=== PATIENT | female | born 2000 | race Caucasian/White ===

== ENCOUNTER 2021-10-01 13:58 | Outpatient (CLI) | payer MEDICAID, SELFPAY ==
--- NOTE | 2021-10-01 14:05 | RAD_ITS ---
INDICATION: KUB- KIDNEY CALC.- STONES EXAMINATION/TECHNIQUE: X-RAY - XR Abdomen 1 View COMPARISON: None FINDINGS: BOWEL GAS PATTERN: Non-obstructive. No bowel or stomach distention. FREE AIR: Not assessed on a single supine view. ORGANOMEGALY: Not seen. CALCIFICATIONS: 0.7 cm right midpole and 0.3 cm left upper pole rounded radiopacities are suspicious for renal calcifications. LOWER CHEST: No acute pathology. BONES AND SOFT TISSUES: No acute pathology. RAD/Abdomen Single View IMPRESSION: Likely bilateral nephrolithiasis. Electronically Signed: Ramiro Davidson, at 14:37 EDT ,
== END 2021-10-01 23:59 | disposition home or self-care (01) ==
LOC: MTRAD 14:04
PROVIDERS: PCP Family Medicine; Referring Provider Urology; Visit Provider Urology
DX: N20.0 Calculus of kidney (principal)
CPT/HCPCS: 74018

== ENCOUNTER 2021-10-14 11:56 | Day surgery (SDC) | payer MEDICAID, SELFPAY ==
[2021-10-14] VITALS (8 sets, daily range): BP systolic 133–167; BP diastolic 75–97; PULSE 71–81; RESP 16; TEMP 36.1–36.7; O2SAT 99–100; BMI 33.9
[2021-10-14] MEDS: Lactated Ringers 1,000 ML 15 ML IV (12:20)
[2021-10-14 12:25] LABS: Internal QC Validated? YES +Cl - CLEAR BKGD; Pregnancy, Urine Negative Negative
--- NOTE | 2021-10-14 13:06 | PCM.OPRPT ---
Problems Associated Problem List Diagnoses (1) Right renal stone: Report of Operation Date of Procedure: 10/14/21 Pre-Operative Diagnosis: Right renal calculus Post-Operative Diagnosis: Same Surgery/Procedure Performed:: Cystoscopy with right ureteral stent insertion, right extracorporal shockwave lithotripsy Surgeon: iTff Comer Type of Anesthesia: General Specimen's removed: None Description of Procedure: The patient is a 21-year-old female with a history of stones who presented to the office after being diagnosed with a large right renal calculus. After discussing the risk benefits and alternatives, she agreed to proceed with surgical intervention. Informed consent was obtained. The patient was taken to the operating room and placed on the operating room table. Anesthesia monitored the head, neck, airway, IV access and vital signs throughout the case. Once anesthesia was probably administered the patient was placed into dorsal lithotomy position was prepped and draped in usual sterile fashion. The cystoscope was inserted through the urethra under direct visualization into the urinary bladder. The bladder mucosa was found to be within normal limits. The right ureteral orifice was identified and intubated with 0.035 Glidewire. A 6 Kinyarwanda by 24 cm JJ stent was inserted over the wire without difficulty. There is good positioning in the renal pelvis as well as the urinary bladder. At this time the patient's bladder was emptied and the cystoscope was removed. She was repositioned on the lithotripter table. The stone was easily identified and was shocked with 3000 shocks. The patient tolerated the procedure without complication. She was then awakened and taken to the recovery room in good condition. There were no complications during this procedure. Grafts/Implants Used: 6 x 24 JJ stent Complications None Admit VTE Documentation VTE Present on Admission: Yes VTE Mechan Device Prophylaxis: SCD's VTE Pharm Prophylaxis ordered?: No Reason prophylaxis not ordered:: Treatment Not Indicated
--- NOTE | 2021-10-14 13:09 | PCM.DC ---
Discharge Instructions Diet Discharge Diet: No restrictions Activity Discharge Activity: Return to Normal Activity, May Drive (When not taking narcotics) and May Shower Dressing / Incision Call your doctor if you observe: Fever of 101 or Higher, Inability to urinate and Inability to have a bowel movement Follow Up Care Please Follow Up With: Tiff Comer MD When: In 2 to 3 weeks, call the office for appointment Test Results: Test results from this visit will be discussed in further detail at your follow-up appointment, if applicable. Discharge Plan Admission Attending Provider: Tiff Comer Primary Care Provider: Ana Lewis Discharge Orders/Prescriptions Prescriptions: New oxycodone-acetaminophen [oxycodone-acetaminophen] 1 TABLET tablet 2 tab PO Q8H PRN PRN (Reason: Pain) 7 Days Qty: 15 RF: 0 cephalexin [cephalexin] 500 MG capsule 500 mg PO Q12 3 Days Qty: 6 RF: 0 phenazopyridine [Pyridium] 200 MG tablet 200 mg PO TID PRN PRN (Reason: Bladder Spasms) 7 Days Qty: 30 RF: 0 Continued quetiapine 25 mg tablet 25 mg PO DAILY RF: 0 venlafaxine 37.5 mg capsule,extended release 24hr 37.5 mg PO 1700 RF: 0 divalproex 250 mg tablet,delayed release (DR/EC) 250 mg PO BID RF: 0 venlafaxine 150 mg capsule,extended release 24hr 150 mg PO DAILY RF: 0 hydroxyzine pamoate 25 mg capsule 25 - 50 mg PO QHS RF: 0 Trulance 3 mg tablet 3 mg PO DAILY RF: 0 Referrals / Follow Up: Ana Lewis MD [Primary Care Provider] - Disposition Disposition (needs filled in before D/C Order can be placed): Home, Self Care
[2021-10-14] MEDS: Cefazolin 2 GM in 0.9% Normal Saline 100 ML IV (13:42)
== END 2021-10-14 23:59 | disposition home or self-care (01) ==
LOC: SDC 11:56 → AC 11:57
PROVIDERS: Anesthesiology; PCP Family Medicine; Referring Provider Urology; Visit Provider Urology
PROC: (CPT 50590; principal; 2021-10-14 13:15)
DX: N20.0 Calculus of kidney (principal); F31.9 Bipolar disorder, unspecified; F41.9 Anxiety disorder, unspecified; Z87.442 Personal history of urinary calculi; Z79.899 Other long term (current) drug therapy
CPT/HCPCS: 52332; 00910; 50590; 81025; 87426; C9803; J7120; C2617; J2405

== ENCOUNTER 2021-11-03 09:13 | Outpatient (CLI) | payer MEDICAID, SELFPAY ==
--- NOTE | 2021-11-03 09:17 | RAD_ITS ---
INDICATION: KIDNEY CALC EXAMINATION/TECHNIQUE: X-RAY - XR Abdomen 1 View COMPARISON: 10/01/2021. FINDINGS: Right double-J ureteral stent visualized in position. BOWEL GAS PATTERN: Non-obstructive. No bowel or stomach distention. Abundance of stool is visualized in the large bowel. FREE AIR: Not assessed on a single supine view. ORGANOMEGALY: Not seen. CALCIFICATIONS: No abnormal calcifications observed. LOWER CHEST: No acute pathology. BONES AND SOFT TISSUES: No acute pathology. RAD/Abdomen Single View IMPRESSION: Right double-J ureteral stent visualized in position. Limited evaluation of the renal best due to superimposed stool filled bowel loops, no calcifications seen. Electronically Signed: Yifan Linares MD at 10:46 EDT ,
== END 2021-11-03 23:59 | disposition home or self-care (01) ==
LOC: MTRAD 09:14
PROVIDERS: PCP Family Medicine; Referring Provider Urology; Visit Provider Urology
DX: N20.0 Calculus of kidney (principal)
CPT/HCPCS: 74018

== ENCOUNTER → 2021-12-04 | Outpatient (CLI) | payer MEDICAID, SELFPAY ==
--- NOTE | 2021-12-04 14:51 | CT_ITS ---
EXAM: CT ABDOMEN AND PELVIS WITHOUT AND WITH INTRAVENOUS CONTRAST CLINICAL INDICATION: KIDNEY STONES TECHNIQUE: Helically acquired images were obtained of the abdomen and pelvis without and with intravenous contrast. This CT exam was performed using one or more of the following dose reduction techniques: automated exposure control, adjustment of the mA and/or kV according to patient size, and/or use of iterative reconstruction technique. This report was created using [employer] report generation technology. CONTRAST: IV 100mL Isovue-300 COMPARISON: None. FINDINGS: LOWER THORAX: Unremarkable. Lung bases are clear. No cardiomegaly. No pericardial effusion. ABDOMEN: LIVER: Unremarkable. Homogeneous. No focal mass. GALLBLADDER AND BILE DUCTS: Unremarkable. No calcified gallstones. No gallbladder distention or wall edema. No intra- or extrahepatic biliary ductal dilation. PANCREAS: Unremarkable. No focal cystic or solid mass. SPLEEN: Unremarkable. Normal size without focal cystic or solid mass. ADRENALS: Unremarkable. No nodules. KIDNEYS AND URETERS: Punctate stone noted within the left kidney. 14 mm cyst within the lower pole left kidney. 8 mm thick perinephric fluid collection noted along the lateral contour of the right kidney which may represent chronic hematoma or possibly abscess. No obstructive changes of the renal collecting system. STOMACH AND BOWEL: Unremarkable. No bowel distention. No focal inflammatory change. PELVIS: APPENDIX: Appendix is visualized and normal in appearance. BLADDER: Unremarkable. REPRODUCTIVE: Unremarkable as visualized. No mass. ABDOMEN and PELVIS: INTRAPERITONEAL SPACE: Unremarkable. No ascites or other fluid collection. No free air. BONES/JOINTS: Unremarkable. No suspicious lytic or blastic abnormality. SOFT TISSUES: Unremarkable. No discrete abdominal or pelvic wall hernia. VASCULATURE: Unremarkable. Abdominal aorta is non-dilated. LYMPH NODES: Unremarkable. No enlarged lymph nodes. CT/CT Abd/Pelvis W/WO Contrast IMPRESSION: 1. Right perinephric fluid collection which may represent localized hematoma or abscess. No discrete evidence of underlying acute pyelonephritis or urinary tract obstruction. 2. Punctate left renal stone. Electronically Signed: Arun Strange MD at 15:53 EDT ,
== END | disposition home or self-care (01) ==
LOC: CT 14:48
PROVIDERS: PCP Family Medicine; Referring Provider Urology; Visit Provider Urology
DX: N20.0 Calculus of kidney (principal)
CPT/HCPCS: 74178; Q9967

== ENCOUNTER → 2021-12-09 | Outpatient (CLI) | payer MEDICAID, SELFPAY ==
[2021-12-09 15:35] LABS: Hematocrit 33.5 % (37-47); Hemoglobin 10.1 g/dL (12.0-15.0); Mean Corp Hgb Conc 30.1 g/dL (32-36); Mean Corpuscular Hgb 22.7 pg (27.0-32.0); Mean Corpuscular Volume 75.5 fL (81-99); Platelet Count 312 K/mm3 (150-450); RBC Distribution Width CV 14.1 % (11.6-14.6); RBC Distribution Width SD 38.1 fl (35.1-43.9); Red Blood Count 4.44 M/mm3 (4.2-5.4); White Blood Count 6.3 K/mm3 (4.4-11.0)
[2021-12-09 15:48] LABS: Anion Gap 5 (5-15); BUN 20 mg/dL (7-18); BUN/Creat Ratio 31.8 RATIO (10-20); Calcium,Total 8.9 mg/dL (8.5-10.1); Chloride 112 mmol/L (98-107); Creatinine, Serum 0.63 mg/dL (0.55-1.02); EST Glomerular Filtration Rate 126 mL/min (>60); Est Glom Filt Rate - Afr Amer 153 mL/min (>60); Glucose 92 mg/dL (74-106); Potassium 4.2 mmol/L (3.5-5.1); Sodium Level 139 mmol/L (136-145)
== END | disposition home or self-care (01) ==
LOC: MTLAB 11:08
PROVIDERS: PCP Family Medicine; Referring Provider Urology; Visit Provider Urology
DX: N15.9 Renal tubulo-interstitial disease, unspecified (principal)
CPT/HCPCS: 36415; 80048; 85027

== ENCOUNTER 2022-11-29 22:01 | Observation (INO) | payer MEDICAID, SELFPAY ==
[2022-11-29 22:01] VITALS: BP 163/101; PULSE 79; RESP 18; TEMP 35.9; O2SAT 98; BMI 22.4
--- NOTE | 2022-11-29 22:06 | EX.ED.VIS.PS ---
HPI HPI - Psych History of Present Illness Chief Complaint: Suicidal Informant: patient and EMS Narrative Narrative: Patient admits to overdosing on her psychiatric medications and attempt to kill herself tonight. Initially she kept saying she did this a while ago and had no idea when she took the pills, but it sounds like an estimate is about 1 hour prior to evaluation. She had 2 full bottles of medications, 1 each of 30 pills, venlafaxine 150 mg, and Viibryd 20 mg, and she states she opened them and took all of both of those. She did not take anything else. She states she took them all at once. Subsequently she vomited and saw multiple pill fragments. She is asymptomatic at this time. After she vomited up the pill she called 911 herself. She states she has really been struggling because her mom a month ago and I just want to be and with my mom. PFSH PFSH Medical History Anxiety Bipolar disorder Depression High cholesterol History of IBS Right renal stone Smoker Home Medications divalproex 250 mg tablet,delayed release 250 mg PO BID BIPOLAR 10/07/21 [History Last Taken Unknown] hydroxyzine pamoate 25 mg capsule 25 - 50 mg PO QHS 10/07/21 [History Last Taken Unknown] plecanatide 3 mg tablet (Trulance) 3 mg PO DAILY IBS 10/07/21 [History Last Taken Unknown] quetiapine 25 mg tablet 25 mg PO DAILY 10/07/21 [History Last Taken Unknown] venlafaxine 150 mg capsule,extended release 24 hr 150 mg PO DAILY 10/07/21 [History Last Taken Unknown] venlafaxine 37.5 mg capsule,extended release 24 hr 37.5 mg PO 1700 10/07/21 [History Last Taken Unknown] cephalexin 500 mg capsule 500 mg PO Q12 post-operative 3 days #6 CAPSULES 10/14/21 [Rx Last Taken Unknown] oxycodone-acetaminophen 5 mg-325 mg tablet 2 tab PO Q8H PRN PRN Pain 7 days #15 tabs 10/14/21 [Rx Last Taken Unknown] phenazopyridine 200 mg tablet (Pyridium) 200 mg PO TID PRN PRN Bladder Spasms 7 days #30 tabs 10/14/21 [Rx Last Taken Unknown] Allergy/AdvReac Type Severity Reaction Status Date / Time latex Allergy Other Verified 10/07/21 15:20 Family History Other Heart disease Hypertension Surgical History Hx of colonoscopy Social History Smoking Status: Light Smoker (<10/day) ROS ROS ED Constitutional Constitutional ED: Denies chills or fever(s) Eyes Eyes: Denies change in vision or diplopia ENT ENT ED: Denies rhinorrhea or sore throat Cardiovascular Cardiovascular: Denies chest pain or palpitations Respiratory/Chest Respiratory/Chest: Denies cough or dyspnea Gastrointestinal Gastrointestinal: Denies abdominal pain, diarrhea, nausea or vomiting Genitourinary Genitourinary ED: Denies dysuria or hematuria Musculoskeletal Musculoskeletal: Denies back pain or neck pain Integumentary Denies abscess or rash Neurologic Neurologic: Denies headache(s), paresthesias or weakness Psychiatric Psychiatric: Reports depression, suicidal ideation and suicidal thoughts; Denies homicidal ideation EXAM Physical Exam Const Vital Signs: 11/29/22 22:01 11/29/22 23:01 11/30/22 00:01 Temperature 96.7 F L Temperature Source Temporal Pulse Rate 79 Respiratory Rate 18 20 H 21 H Blood Pressure 163/101 H Blood Pressure Mean 121 Pulse Ox 98 96 95 Oxygen Delivery Method Room Air Room Air Room Air 11/30/22 01:00 Temperature 98 F Temperature Source Temporal Pulse Rate 78 Respiratory Rate 18 Blood Pressure 134/95 H Blood Pressure Mean 108 Pulse Ox 97 Oxygen Delivery Method Room Air Positive well nourished and well developed General Appearance ED: well developed and NAD HEENT Reports moist mucous membranes normocephalic and atraumatic Eyes PERRL and EOMs intact bilaterally General Eye ED: Negative for scleral icterus Neck no lymphadenopathy and supple Resp normal respiratory effort and clear to auscultation bilaterally Cardio no murmurs Rate: regular rate Rhythm: regular rhythm GI non-tender and non-distended Auscultation: normoactive bowel sounds Palpation: soft Back/Spine no CVA tenderness and normal ROM Extremity normal to inspection General Extremety ED: Negative for edema General Extremity: Negative for edema Neuro oriented x3, CN's II-XII intact bilaterally, no sensory deficits noted and gait normal Sensorium / Orientation: alert Motor Exam: strength 5/5 throughout Psych mental status grossly normal, thought process normal, cooperative, activity/motor behavior normal and denies homicidal ideation Mood & Affect: depressed Thought Content: suicidality Skin Lesions: no lesions Rashes: no rashes MDM MDM MDM Narrative Medical decision making narrative: Initially patient asymptomatic and keenly alert GCS 15. However by the time the nurses brought charcoal to her, she was too lethargic to drink so they place an NG which she tolerated, and we gave her the charcoal via NG tube. She remained extremely lethargic, difficult to awaken even 2 hours after her arrival, on my evaluation GCS: = 8. However I do not think she needs advanced airway management since she is breathing well, has a gag, and is not hypoxic. Her repeat blood pressure is 140/92 and her vital signs are normal. 3.5 hours after ingestion, her labs are all back, coingestants testing is all negative, toxicology negative, and the rest of her work-up is unremarkable. I discussed with poison control, they said that she was unlikely to have any major issues, QT prolongation would be uncommon which she does not have right now, serotonin syndrome and seizures are possible but not necessarily likely it just depends on how much she absorbed, but that she would need to be observed for a minimum of 12 hours, but given her status they agree with admission to the ICU. Patient's COVID returned positive. She is asymptomatic. I no longer am able to ask questions regarding exposures due to her lethargy. I am sending PCR to be done stat. Will be admitted to the ICU with appropriate precautions. Lab Data Attestation: I reviewed the patient's lab results. Labs: Laboratory Results - last 24 hr 11/29/22 11/29/22 11/29/22 22:20 22:20 22:20 WBC 8.2 RBC 5.06 Hgb 11.5 L Hct 37.0 MCV 73.1 L MCH 22.7 L MCHC 31.1 L RDW Std Deviation 39.9 RDW Coeff of Damien 15.3 H Plt Count 349 MPV 10.7 Immature Gran % (Auto) 0.400 Neut % (Auto) 56.4 Lymph % (Auto) 33.0 [place] % (Auto) 6.8 Eos % (Auto) 2.8 Baso % (Auto) 0.6 Absolute Neuts (auto) 4.7 Absolute Lymphs (auto) 2.72 Nucleated RBC % 0 Sodium 140 Potassium 3.6 Chloride 109 H Carbon Dioxide 22.0 Anion Gap 9 BUN 18 Creatinine 0.70 Estim Creat Clear Calc 113.43 Est GFR (MDRD) Af Amer 134 Est GFR (MDRD) Non-Af 111 BUN/Creatinine Ratio 25.8 H Glucose 90 Calcium 8.9 Total Bilirubin 0.20 AST 19 ALT 27 Alkaline Phosphatase 110 Total Protein 8.1 Albumin 3.7 Globulin 4.4 H Albumin/Globulin Ratio 0.8 L Serum , Qual Salicylates 2.0 L Urine Opiates Screen Urine Methadone Screen Acetaminophen 11.4 Ur Barbiturates Screen Ur Phencyclidine Scrn Ur Amphetamines Screen MDMA (Ecstasy) Screen U Benzodiazepines Scrn Urine Cocaine Screen U Cannabinoids Screen Ur Drug Screen Comment Ethyl Alcohol < 3.0 11/29/22 11/29/22 22:20 22:40 WBC RBC Hgb Hct MCV MCH MCHC RDW Std Deviation RDW Coeff of Damien Plt Count MPV Immature Gran % (Auto) Neut % (Auto) Lymph % (Auto) [place] % (Auto) Eos % (Auto) Baso % (Auto) Absolute Neuts (auto) Absolute Lymphs (auto) Nucleated RBC % Sodium Potassium Chloride Carbon Dioxide Anion Gap BUN Creatinine Estim Creat Clear Calc Est GFR (MDRD) Af Amer Est GFR (MDRD) Non-Af BUN/Creatinine Ratio Glucose Calcium Total Bilirubin AST ALT Alkaline Phosphatase Total Protein Albumin Globulin Albumin/Globulin Ratio Serum , Qual NEGATIVE Salicylates Urine Opiates Screen NEGATIVE Urine Methadone Screen NEGATIVE Acetaminophen Ur Barbiturates Screen NEGATIVE Ur Phencyclidine Scrn NEGATIVE Ur Amphetamines Screen NEGATIVE MDMA (Ecstasy) Screen NEGATIVE U Benzodiazepines Scrn NEGATIVE Urine Cocaine Screen NEGATIVE U Cannabinoids Screen NEGATIVE Ur Drug Screen Comment Ethyl Alcohol Radiography Diagnostic Testing: Clinical Impression(s) from Imaging Studies KUB X-Ray 11/29/22 23:15 IMPRESSION: Enteric tube as above. Electronically Signed: Geraldo Mcclure MD at 23:27 EDT , Rhythm Strip Rhythm Strip: Sinus Rhythm Rate: 78 Ectopy: None EKG Initial EKG: Attestation: I personally reviewed and interpreted this EKG as follows: Interpretation: Sinus Rhythm and No Acute Injury Pattern Comments: Normal EKG Management Discussion w/another healthcare provider: Hospitalist and [employer] Specialist (Toxicology) Critical Care Time Critical Care Time: Yes Critical care time (excluding procedures): 30-74 minutes (33 min), Including time spent:, Discussing w/Patient &/or Family/Frame Changer, Discussing w/Consultants, Arranging Admission or Transfer and Performing Direct Patient Care at Bedside Discharge Plan Dx/Rx/DC Orders Clinical Impression: Suicidal ideation, Suicide gesture, Intentional drug overdose, Lethargy Disposition Disposition: Acute Care Hospital [facility]
[2022-11-29 22:33] LABS: Absolute Lymphocyte Count 2.72 X10^3/uL (0.83-4.51); Absolute Neutrophil Count 4.7 X10^3/uL (2.0-7.7); Basophil# 0.05 X10^3/uL; Basophil% 0.6 % (0-1); Eosinophil# 0.23 X10^3/uL; Eosinophils% 2.8 % (0-5); Hemoglobin 11.5 g/dL (12.0-15.0); Lymphocyte # 2.72 X10^3/ul (0.83-4.51); Mean Corp Hgb Conc 31.1 g/dL (32-36); Mean Corpuscular Hgb 22.7 pg (27.0-32.0); Mean Corpuscular Volume 73.1 fL (81-99); Mean Platelet Vol. 10.7 fl (6.2-12.0); Monocyte# 0.56 X10^3/uL; Monocyte% 6.8 % (0-10); NRBC Flagged by Analyzer 0 % (0-5); Neutrophil # 4.65 X10^3/uL (2.7-7.7); Neutrophil % 56.4 % (47-70); Platelet Count 349 K/mm3 (150-450); RBC Distribution Width CV 15.3 % (11.6-14.6); RBC Distribution Width SD 39.9 fl (35.1-43.9); Red Blood Count 5.06 M/mm3 (4.2-5.4); White Blood Count 8.2 K/mm3 (4.4-11.0)
[2022-11-29 22:39] LABS: Internal QC Validated? YES +Cl - CLEAR BKGD
[2022-11-29 22:43] LABS: Pregnancy, Serum, hCG Quali. NEGATIVE Negative
[2022-11-29] MEDS: Activated Charcoal 25 GM/120 ML BOT PO (22:45)
[2022-11-29 22:57] LABS: ALB/GLOB Ratio 0.8 RATIO (0.9-2.4); AST(SGOT) 19 U/L (15-37); Alanine Aminotransfer ALT/SGPT 27 U/L (13-56); Albumin, Serum 3.7 g/dL (3.2-5.0); Alkaline Phosphatase 110 U/L (45-117); Anion Gap 9 (5-15); BUN 18 mg/dL (7-18); BUN/Creat Ratio 25.8 RATIO (10-20); Calcium,Total 8.9 mg/dL (8.5-10.1); Chloride 109 mmol/L (98-107); EST Glomerular Filtration Rate 111 mL/min (>60); Est Glom Filt Rate - Afr Amer 134 mL/min (>60); Estimated Creatinine Clearance 113.43 ml/min; Globulin 4.4 g/dL (2.2-4.2); Glucose 90 mg/dL (74-106); Potassium 3.6 mmol/L (3.5-5.1); Protein, Total 8.1 g/dL (6.4-8.2); Sodium Level 140 mmol/L (136-145)
[2022-11-29 23:00] LABS: Amphetamine Urine VISTA NEGATIVE (<1000 ng/mL); Barbiturate Urine VISTA NEGATIVE (< 200 ng/mL); Benzodiazepine Urine VISTA NEGATIVE (< 200 ng/mL); Cocaine Urine VISTA NEGATIVE (< 300 ng/mL); Ecstacy Urine VISTA NEGATIVE (< 500 ng/mL); Methadone Urine VISTA NEGATIVE (< 300 ng/mL); PCP Urine VISTA NEGATIVE (< 25 ng/mL); THC Urine VISTA NEGATIVE (< 50 ng/mL); Vista UDS pH Range 5
[2022-11-29 23:01] VITALS: RESP 20; O2SAT 96
[2022-11-29 23:13] LABS: Alcohol, Blood (Medical)-Serum < 3.0 mg/dL
--- NOTE | 2022-11-29 23:15 | RAD_ITS ---
INDICATION: ng placement EXAMINATION/TECHNIQUE: X-RAY - XR Abdomen 1 View COMPARISON: None FINDINGS: Enteric tube noted with side port projecting over the stomach bubble. Lung bases are grossly clear. There are some distended loops of bowel in the upper abdomen which are nonspecific. Spinal curvature convex rightward. No obvious subdiaphragmatic free air allowing for semierect positioning. RAD/Abdomen Single View (Portable) IMPRESSION: Enteric tube as above. Electronically Signed: Geraldo Mcclure MD at 23:27 EDT ,
--- NOTE | 2022-11-29 23:30 | ED.RN ---
attempte to give act charcoal via cup and straw to pt. pt unable to remain alert long enough to consume medication. md notified. ng ordered, inserted and medication given. sitter remains present in room.
[2022-11-29 23:39] LABS: Acetaminophen (Tylenol) Level 11.4 ug/mL (10.0-30.0)
[2022-11-30] VITALS (23 sets, daily range): BP systolic 121–172; BP diastolic 81–122; PULSE 78–103; RESP 14–23; TEMP 36.4–37.3; O2SAT 95–98; BMI 35.2
--- NOTE | 2022-11-30 00:41 | EKG12_ITS ---
Test Reason : OVERDOSE Blood Pressure : / mmHG Vent. Rate : 097 BPM Atrial Rate : 097 BPM P-R Int : 150 ms QRS Dur : 092 ms QT Int : 370 ms P-R-T Axes : 035 -06 000 degrees QTc Int : 469 ms Poor data quality, interpretation may be adversely affected Normal sinus rhythm Minimal voltage criteria for LVH, may be normal variant ( R in aVL ) Borderline ECG Confirmed by IRAM PINON, KARIE ([id number]), editor dictionary RACHAEL HER ([id number]) on 12/01/2022 8:19:56 AM Referred By: Confirmed By:KARIE WALDEN MD
--- NOTE | 2022-11-30 01:00 | PCM.HP.STD ---
HPI - General General Date of Admission: 11/30/22 Date of Service: 11/30/22 Chief Complaint: Suicide attempt HPI Narrative PALMER HUGHES, is a 22 F with a significant history of depression who presents to the emergency department with suicidal attempt. History was taken from emergency department doctor and from patient's sister who was at the bedside as patient was encephalopathic and she could not provide history. Patient has been on psychotropic medications for a long time. Patient's mother in less than a month time and reportedly patient has been depressed. Patient takes took about 30 pills/whole bottle of Viibryd and same amount of venlafaxine. Per patient's sister was at the bedside these medications appears to be recently prescribed. Patient's sister does not live with patient in the same house and did not know entire history. Emergency Department doctor reported that initially patient who was talkative stated that she vomited after taking these pills. Then she called 911. Activated charcoal was about to be given to patient orally at the emergency department but then it was noted that she was severely drowsy so an NG tube was placed through which the activated charcoal was administered. Emergency department doctor discussed the case with poison control who suggested that patient be observed for about 12 hours. PFSH Medical History Anxiety Bipolar disorder Depression High cholesterol History of IBS Right renal stone Smoker Home Medications divalproex 250 mg tablet,delayed release 250 mg PO BID BIPOLAR 10/07/21 [History Last Taken Unknown] hydroxyzine pamoate 25 mg capsule 25 - 50 mg PO QHS 10/07/21 [History Last Taken Unknown] plecanatide 3 mg tablet (Trulance) 3 mg PO DAILY IBS 10/07/21 [History Last Taken Unknown] quetiapine 25 mg tablet 25 mg PO DAILY 10/07/21 [History Last Taken Unknown] venlafaxine 150 mg capsule,extended release 24 hr 150 mg PO DAILY 10/07/21 [History Last Taken Unknown] venlafaxine 37.5 mg capsule,extended release 24 hr 37.5 mg PO 1700 10/07/21 [History Last Taken Unknown] cephalexin 500 mg capsule 500 mg PO Q12 post-operative 3 days #6 CAPSULES 10/14/21 [Rx Last Taken Unknown] oxycodone-acetaminophen 5 mg-325 mg tablet 2 tab PO Q8H PRN PRN Pain 7 days #15 tabs 10/14/21 [Rx Last Taken Unknown] phenazopyridine 200 mg tablet (Pyridium) 200 mg PO TID PRN PRN Bladder Spasms 7 days #30 tabs 10/14/21 [Rx Last Taken Unknown] Allergy/AdvReac Type Severity Reaction Status Date / Time latex Allergy Other Verified 10/07/21 15:20 Family History Other Heart disease Hypertension Surgical History Hx of colonoscopy Social History Smoking Status: Light Smoker (<10/day) ROS Review of Systems ROS Unobtainable: due to encephalopathy Vital Signs Vital Signs Vital Signs: 11/29/22 22:01 11/29/22 23:01 11/30/22 00:01 Temperature 96.7 F L Temperature Source Temporal Pulse Rate 79 Respiratory Rate 18 20 H 21 H Blood Pressure 163/101 H Blood Pressure Mean 121 Pulse Ox 98 96 95 Oxygen Delivery Method Room Air Room Air Room Air Weight Weight: 61.235 kg Body Mass Index (BMI) 22.4 Physical Exam Narrative Physical exam: General: Well-nourished, well-developed. Head: Normocephalic, atraumatic, no tenderness Eyes: PERRL ENT, no trauma, moist mucous membranes, no rhinorrhea Neck: Nontender, No thyromegaly. CVS: Regular rate and rhythm. S1-S2 present. No murmur, gallop or rub. Respiratory : clear to auscultation bilaterally, chest wall nontender Abdomen: Soft, nontender, nondistended, normal bowel sounds, no masses : Deferred Back: Nontender, no CVA tenderness, no midline spinal tenderness, deformities, step-offs Extremities: Nontender full range of motion, no trauma Skin: Normal color, no trauma, abrasions Neuro: Stuporous, oriented, cranial nerves II through XII grossly intact. Psychiatry: Normal mood. Normal affect. Not depressed. Not anxious. Results Lab / Micro Data Attestation: I reviewed the patient's lab results. Result Diagrams: 11/29/22 22:20 11/29/22 22:20 Labs: Laboratory Results - last 24 hr 11/29/22 22:20: WBC 8.2, RBC 5.06, Hgb 11.5 L, Hct 37.0, MCV 73.1 L, MCH 22.7 L, MCHC 31.1 L, RDW Std Deviation 39.9, RDW Coeff of Damien 15.3 H, Plt Count 349, MPV 10.7, Immature Gran % (Auto) 0.400, Neut % (Auto) 56.4, Lymph % (Auto) 33.0, [place] % (Auto) 6.8, Eos % (Auto) 2.8, Baso % (Auto) 0.6, Absolute Neuts (auto) 4.7, Absolute Lymphs (auto) 2.72, Nucleated RBC % 0 11/29/22 22:20: Sodium 140, Potassium 3.6, Chloride 109 H, Carbon Dioxide 22.0, Anion Gap 9, BUN 18, Creatinine 0.70, Estim Creat Clear Calc 113.43, Est GFR (MDRD) Af Amer 134, Est GFR (MDRD) Non-Af 111, BUN/Creatinine Ratio 25.8 H, Glucose 90, Calcium 8.9, Total Bilirubin 0.20, AST 19, ALT 27, Alkaline Phosphatase 110, Total Protein 8.1, Albumin 3.7, Globulin 4.4 H, Albumin/Globulin Ratio 0.8 L 11/29/22 22:20: Salicylates 2.0 L, Acetaminophen 11.4, Ethyl Alcohol < 3.0 11/29/22 22:20: Serum , Qual NEGATIVE 11/29/22 22:40: Urine Opiates Screen NEGATIVE, Urine Methadone Screen NEGATIVE, Ur Barbiturates Screen NEGATIVE, Ur Phencyclidine Scrn NEGATIVE, Ur Amphetamines Screen NEGATIVE, MDMA (Ecstasy) Screen NEGATIVE, U Benzodiazepines Scrn NEGATIVE, Urine Cocaine Screen NEGATIVE, U Cannabinoids Screen NEGATIVE, Ur Drug Screen Comment Micro: Microbiology 11/29/22 22:45 Nasal Secretion SARS-CoV-2 Antigen (Rapid) - Final Rhythm Strip Rhythm Strip: Sinus Rhythm Rate: 78 Ectopy: None Radiology Impression KUB X-Ray 11/29/22 23:15 IMPRESSION: Enteric tube as above. Electronically Signed: Geraldo Mcclure MD at 23:27 EDT , Assessment & Plan Assessment/Plan (1) Suicide gesture: QUALIFIERS: Encounter type: initial encounter Qualified Code(s): X83.8XXA - Intentional self-harm by other specified means, initial encounter (2) Intentional drug overdose: QUALIFIERS: Encounter type: initial encounter Qualified Code(s): T50.902A - Poisoning by unspecified drugs, medicaments and biological substances, intentional self-harm, initial encounter PLAN: Plan Initial suicide attempt/initial drug overdose/acute toxic encephalopathy. Pathology reviewed showed unremarkable salicylate level; negative alcohol level. Will observe patient on telemetry and intensive care unit. Repeat EKG in a.m. Keep patient NPO. Gentle IV hydration. Hold all other medications. Suicidal precautions and sitter at the bedside at all times. EKG showed sinus rhythm with normal QT interval. Repeat EKG in a.m. Positive SARS Cov 2 antigen Rapid COVID antigen returned positive. ED doc who interviewed patient when patient was talkative reported that patient did not have any symptomatology of covid-19 infection. COVID PCR ordered at the emergency department, follow. DVT prophylaxis: Low risk Charges/Coding Visit Charges Inpatient E&M: 41911 Init Hosp L2
[2022-11-30] MEDS: 0.9% Normal Saline 1,000 ML 125 ML IV (01:42)
[2022-11-30] MEDS: Lactated Ringers 1,000 ML 100 ML IV ×2 (03:26→15:18)
[2022-11-30 03:40] LABS: Absolute Neutrophil Count 6.3 X10^3/uL (2.0-7.7); Basophil# 0.05 X10^3/uL; Basophil% 0.5 % (0-1); Eosinophil# 0.29 X10^3/uL; Hemoglobin 10.7 g/dL (12.0-15.0); Lymphocyte % 23.1 % (19-41); Mean Corp Hgb Conc 30.6 g/dL (32-36); Mean Corpuscular Hgb 22.6 pg (27.0-32.0); Mean Platelet Vol. 10.8 fl (6.2-12.0); Monocyte# 0.66 X10^3/uL; Monocyte% 6.9 % (0-10); NRBC Flagged by Analyzer 0 % (0-5); Neutrophil # 6.27 X10^3/uL (2.7-7.7); Neutrophil % 66.1 % (47-70); Platelet Count 382 K/mm3 (150-450); RBC Distribution Width CV 15.2 % (11.6-14.6); RBC Distribution Width SD 40.7 fl (35.1-43.9); Red Blood Count 4.73 M/mm3 (4.2-5.4); White Blood Count 9.5 K/mm3 (4.4-11.0)
[2022-11-30 03:40] LABS: Probe Check PASS; Specimen Processing Control PASS
[2022-11-30 04:02] LABS: ALB/GLOB Ratio 0.8 RATIO (0.9-2.4); AST(SGOT) 16 U/L (15-37); Alanine Aminotransfer ALT/SGPT 26 U/L (13-56); Albumin, Serum 3.4 g/dL (3.2-5.0); Alkaline Phosphatase 98 U/L (45-117); Anion Gap 7 (5-15); BUN 15 mg/dL (7-18); BUN/Creat Ratio 21.3 RATIO (10-20); Chloride 112 mmol/L (98-107); EST Glomerular Filtration Rate 110 mL/min (>60); Est Glom Filt Rate - Afr Amer 133 mL/min (>60); Estimated Creatinine Clearance 108.86 ml/min; Glucose 112 mg/dL (74-106); Potassium 3.6 mmol/L (3.5-5.1); Protein, Total 7.4 g/dL (6.4-8.2); Sodium Level 143 mmol/L (136-145)
--- NOTE | 2022-11-30 04:02 | NURSING ---
Pt arrived to ICU @0235 on 11/30/22. Pt lethargic and denies any pain. Pt accompanied by sitter and ED RN upon arrival. Vitals stable, will continue to monitor.
--- NOTE | 2022-11-30 06:00 | EKG12_ITS ---
Test Reason : OVERDOSE Blood Pressure : / mmHG Vent. Rate : 092 BPM Atrial Rate : 092 BPM P-R Int : 142 ms QRS Dur : 094 ms QT Int : 396 ms P-R-T Axes : 031 003 018 degrees QTc Int : 489 ms Normal sinus rhythm Normal ECG When compared with ECG of 30-NOV-2022 01:04, MANUAL COMPARISON REQUIRED, DATA IS UNCONFIRMED Confirmed by IRAM PINON, KARIE ([id number]), food expeditor RACHAEL HER ([id number]) on 12/01/2022 10:03:16 AM Referred By: KEANU Confirmed By:KARIE WALDEN MD
[2022-11-30 07:32] LABS: Ferritin 8 ng/mL (8-252); Iron 40 ug/dL (50-170); Iron Binding Capacity,Total 423 ug/dL (250-450); PERCENT IRON SATURATION 9.5 % (15.0-55.0)
[2022-11-30] MEDS: CHLORHEXIDINE GLUC 2% CLOTH 1 EACH TOWELETTE TOPICAL (07:51)
--- NOTE | 2022-11-30 09:39 | PCM.HOSP.N ---
Hospitalist Note Ms. Bueno is a 22-year-old white female who presented to the emergency department early this morning after suicide attempt. Patient does have a history of depression and her mother recently . She was encephalopathic on presentation. She has been on psychiatric medications for a long time. Family reported that the patient's mother had within the last month and the patient has been depressed. Family reported that she took about 30 pills/whole bottle of Viibryd and same amount of venlafaxine. This morning the patient denies any venlafaxine overdose and states she only took the Viibryd. The sister reported these medication appeared to be recently prescribed. Sister does not live in the same house with the patient so the history was somewhat unclear. The emergency department reported the patient was initially quite talkative and stated that she vomited after taking the pills then she called 911. She was given out activated charcoal in the emergency department via NG as she became drowsy. Emergency department discussed the case with poison control who suggested we observe the patient for approximately 12 hours. Lab revealed she also has an anemia. I pursued work-up for iron deficiency and iron studies are consistent with iron deficiency anemia. I discussed menstrual bleeding with the patient today states she has heavy periods. I will give her 2 doses of IV iron once today and once tomorrow. As long as she remains stable today I suspect she will be able to be discharged to psychiatric care tomorrow and evaluated by crisis. I will plan on discharging her on oral iron at the time of discharge. She is quite awake this morning and able to communicate without any difficulty. I will remove the NG and start clear liquid diet and advance as tolerated. Her rapid COVID test was positive however PCR was negative and she is asymptomatic so we will therefore discontinue precautions. Diagnoses: Intentional overdose of prescription medication Suicide attempt Iron deficiency anemia Hyperlipidemia IBS History of nephrolithiasis Bipolar disorder Anxiety/depression Tobacco abuse Obesity
[2022-11-30] MEDS: Sodium Ferric Gluconat 250 MG in 0.9% Normal Saline 250 ML 135 MG IV (10:24)
[2022-11-30] MEDS: hydrALAZINE 20 MG/ML Vial 10 MG IV ×2 (12:45→19:49)
--- NOTE | 2022-11-30 15:32 | CHAPLAIN ---
Type of Pastoral Visit _x__ Initial Visit ___ Follow-up Visit ___ On-call Visit ___ General Patient Visit ___ Spiritual Assessment ___ Family Conference ___ Bereavement ___ Rapid Response ___ Code Blue ___ Other (describe below) Pastoral Care Referral From ___ Patient ___ Family _x__ Nurse ___ Physician ___ Vest Presser ___ Data Analyst Etl Developer ___ Other (describe below) Sacrament/Intervention _x__ Active listening ___ Anointing ___ Latter-Day _x__ Bereavement ___ Communion ___ Emmanuelle exploration ___ ___ Life review ___ Prayer ___ Reconciliation ___ Sacrament of Sick _x__ Supportive presence ___ Wedding ___ Other (describe below) Pastoral Comments patient had a suicide attempt on Mother's Day in grief over recent of her mom; pt is welcoming and states she is doing fine today; pt answers questions about her mom, her feelings, her support system, and how she views God; support, time to listen, validation of feelings are extended to her
[2022-11-30] MEDS: Lisinopril 20 MG Tablet PO (15:33)
[2022-12-01] MEDS: Lactated Ringers 1,000 ML 100 ML IV ×2 (01:02→09:37)
[2022-12-01 03:00] VITALS: BP 148/94; PULSE 89; RESP 18; TEMP 36.6; O2SAT 100
[2022-12-01 03:12] VITALS: BMI 35.2
[2022-12-01] MEDS: Acetaminophen 325 MG Tablet 650 MG PO (05:07)
[2022-12-01 06:44] LABS: Absolute Lymphocyte Count 2.75 X10^3/uL (0.83-4.51); Absolute Neutrophil Count 3.3 X10^3/uL (2.0-7.7); Basophil# 0.05 X10^3/uL; Basophil% 0.7 % (0-1); Eosinophil# 0.29 X10^3/uL; Eosinophils% 4.1 % (0-5); Hemoglobin 10.5 g/dL (12.0-15.0); Lymphocyte # 2.75 X10^3/ul (0.83-4.51); Lymphocyte % 39.3 % (19-41); Mean Corp Hgb Conc 30.9 g/dL (32-36); Mean Corpuscular Hgb 22.5 pg (27.0-32.0); Mean Corpuscular Volume 72.8 fL (81-99); Mean Platelet Vol. 10.1 fl (6.2-12.0); Monocyte% 8.6 % (0-10); NRBC Flagged by Analyzer 0 % (0-5); Neutrophil # 3.29 X10^3/uL (2.7-7.7); Neutrophil % 47.2 % (47-70); Platelet Count 346 K/mm3 (150-450); RBC Distribution Width CV 15.6 % (11.6-14.6); RBC Distribution Width SD 40.4 fl (35.1-43.9); Red Blood Count 4.67 M/mm3 (4.2-5.4)
[2022-12-01 07:28] LABS: Anion Gap 6 (5-15); BUN 11 mg/dL (7-18); BUN/Creat Ratio 18.1 RATIO (10-20); Chloride 109 mmol/L (98-107); Creatinine, Serum 0.61 mg/dL (0.55-1.02); EST Glomerular Filtration Rate 130 mL/min (>60); Est Glom Filt Rate - Afr Amer 157 mL/min (>60); Estimated Creatinine Clearance 124.92 ml/min; Glucose 92 mg/dL (74-106); Magnesium 2.3 mg/dL (1.6-2.6); Phosphorus 3.1 mg/dL (2.5-4.9); Potassium 3.5 mmol/L (3.5-5.1); Sodium Level 138 mmol/L (136-145); Thyroid Stim Hormone (TSH) 4.11 uIU/mL (0.358-3.74)
--- NOTE | 2022-12-01 08:02 | EKG12_ITS ---
Test Reason : PROLONG QT Blood Pressure : / mmHG Vent. Rate : 095 BPM Atrial Rate : 095 BPM P-R Int : 146 ms QRS Dur : 090 ms QT Int : 382 ms P-R-T Axes : 041 002 022 degrees QTc Int : 480 ms Normal sinus rhythm Minimal voltage criteria for LVH, may be normal variant ( R in aVL ) Prolonged QT Abnormal ECG When compared with ECG of 30-NOV-2022 06:10, MANUAL COMPARISON REQUIRED, DATA IS UNCONFIRMED Confirmed by IRAM PINON, KARIE ([id number]), design editor RACHAEL HER ([id number]) on 12/02/2022 8:39:07 AM Referred By: Confirmed By:KARIE WALDEN MD
[2022-12-01 08:23] LABS: T4 Free Direct 1.45 ng/dL (0.76-1.46)
--- NOTE | 2022-12-01 08:54 | CASEMGMT ---
Patient is medically cleared for crisis evaluation. YAMILETH called Crisis and spoke with Helen regarding referral. SW also faxed referral information to crisis. Jadyn Reinoso MSW HARJEET
[2022-12-01 09:13] VITALS: BP 163/108; PULSE 97; RESP 16; TEMP 36.2; O2SAT 99
[2022-12-01] MEDS: Loratadine 10 MG Tablet PO (09:21)
[2022-12-01] MEDS: Lisinopril 40 MG Tablet PO (09:21)
--- NOTE | 2022-12-01 09:31 | PCM.HOSP.N ---
Hospitalist Note Medically Stable for discharge to psych. D/W SW and Crisis to see today. Ok for Discharge today to inpt psych facility.
--- NOTE | 2022-12-01 13:08 | DS.PCM_ITS ---
Providers Date of Admission: 11/30/22 Date of Discharge: 12/01/22 Primary Care Physician: Dr. Ana Lewis MD Reason For Visit: SUICIDAL ATTEMPT Diagnosis Discharge Diagnosis (1) Suicide gesture: Status: Acute Code(s): X83.8XXA - Intentional self-harm by other specified means, initial encounter Qualifiers: Encounter type: initial encounter Qualified Code(s): X83.8XXA - Intentional self-harm by other specified means, initial encounter (2) Intentional drug overdose: Status: Acute Code(s): T50.902A - Poisoning by unspecified drugs, medicaments and biological substances, intentional self-harm, initial encounter Qualifiers: Encounter type: initial encounter Qualified Code(s): T50.902A - Poisoning by unspecified drugs, medicaments and biological substances, intentional self-harm, initial encounter Medications at Discharge Home Medications plecanatide 3 mg tablet (Trulance) 3 mg PO DAILY IBS 10/07/21 ferrous sulfate 325 mg (65 mg iron) tablet,delayed release 325 mg PO BID #60 tabs 12/01/22 lisinopril 40 mg tablet 40 mg PO DAILY #30 tabs 12/01/22 Hospital Course Procedures - (KUB/NG tube placement) Summary of Care Provided Minutes Spent on Discharge: 26 Hospital Course: Ms. Bueno is a 22-year-old white female who presented to the emergency department early on the morning of 11/30/2022 after a suicide attempt with int entional overdose of Viibryd and venlafaxine. Family gave history and presentation as she was encephalopathic. She evidently has a history of psychiatric disorder and has been on medication for a long period of time. Her mother within the last month and she had been more depressed. Her sister reported that she was recently prescribed the above and medications. The emergency department reported that the patient was initially quite talkative and stated she had vomited after taking the pills and then called 911. She was given activated charcoal in the emergency department via NG after but she became drowsy. Emergency department discussed the case with poison control who suggested we observe the patient for approximately 12 hours or more depending on clinical course. Her lab also revealed an iron deficiency anemia. The patient reported heavy periods and she was given IV iron x2 doses and oral iron was started at the time of discharge. QTc was not prolonged on admission and repeat EKG on 12/01/2022 revealed a normal EKG with no QT prolongation. Mental status improved dramatically and we will able to remove the NG in the afternoon of 11/30/2022. The patient is tolerated regular diet. Crisis evaluated the patient and has excepted her for discharge to psychiatric facility. [place] slip was signed. Her blood pressure was noted to be elevated during her hospital course and upon medication review for outpatient medications it appears she has been prescribed antihypertensives in the past and is noncompliant. She was discharged with lisinopril 40 mg daily to be continued after discharge. New medications again are lisinopril and iron. I do recommend a repeat CBC perfo rmed by her primary care physician at follow-up however there is no urgency for this. She was discharged to psychiatric facility in stable condition on 12/01/2022. Discharge diagnoses: Intentional overdose of prescription medication Suicide attempt Iron deficiency anemia Hypertension Hyperlipidemia IBS History of nephrolithiasis Bipolar disorder Anxiety/depression Tobacco abuse Obesity Physical Exam Const alert, oriented x3 and no apparent distress Constitutional Narrative: obese, young, white female, sitting up in bed, appears comfortable, nontoxic, sitter at the bedside General Appearance: cooperative, comfortable, well kempt and well developed Orientation / Consciousness: awake, oriented to person, oriented to place and oriented to time Exam Limitations: no limitations Nutritional Appearance: morbidly obese HEENT normocephalic, head/scalp atraumatic, hearing grossly normal bilaterally and moist oral mucous membranes HEENT Narrative: Mallampati 3-4 Resp normal respiratory effort, no retractions, no use of accessory muscles and clear to auscultation bilaterally Auscultation: Negative for crackles, rales, rhonchi or wheezes Cardio regular rate, regular rhythm, S1 normal heart sound, S2 normal heart sound, no murmurs, no rub, no gallops and no clicks GI normal to inspection, nondistended, normoactive bowel sounds and soft to palpation Extremity no clubbing, cyanosis or edema Extremity Narrative: 2+ pedal pulses Neuro oriented x3, CN's II-XII intact bilaterally, moves all extremities, no focal motor deficits and no sensory deficits noted Speech: speech normal Motor Exam: strength 5/5 throughout Psych Psych Narrative: Affect is flat, mood seems depressed, somewhat juvenile and interaction Weight / BMI Weight Weight: 95.9 kg Body Mass Index (BMI) 35.2 ABG / Lab / Microbiology Data Result Diagrams: 12/01/22 06:35 12/01/22 06:35 Laboratory: Laboratory Results - last 24 hr 12/01/22 06:35: WBC 7.0, RBC 4.67, Hgb 10.5 L, Hct 34.0 L, MCV 72.8 L, MCH 22.5 L, MCHC 30.9 L, RDW Std Deviation 40.4, RDW Coeff of Damien 15.6 H, Plt Count 346, MPV 10.1, Immature Gran % (Auto) 0.100, Neut % (Auto) 47.2, Lymph % (Auto) 39.3, [place] % (Auto) 8.6, Eos % (Auto) 4.1, Baso % (Auto) 0.7, Absolute Neuts (auto) 3.3, Absolute Lymphs (auto) 2.75, Nucleated RBC % 0 12/01/22 06:35: Sodium 138, Potassium 3.5, Chloride 109 H, Carbon Dioxide 23.0, Anion Gap 6, BUN 11, Creatinine 0.61, Estim Creat Clear Calc 124.92, Est GFR (MDRD) Af Amer 157, Est GFR (MDRD) Non-Af 130, BUN/Creatinine Ratio 18.1, Glucose 92, Calcium 9.0, Phosphorus 3.1, Magnesium 2.3, TSH 4.11 H 12/01/22 06:35: Free T4 1.45 Microbiology: Microbiology 11/29/22 22:45 Nasal Secretion SARS-CoV-2 Antigen (Rapid) - Final SARS-CoV-2 (COVID 19) D/C Instructions Discharge Diet: Low fat / Low cholesterol Discharge Activity: Return to Normal Activity Meaningful Use Info Meaningful Use Diagnoses (Choose all that apply): None applicable Discharge Plan Admission Admit Date/Time: 11/30/22 00:52 Primary Reason for Your Visit: Intentional overdose Attending Provider: Mahsa Olson Primary Care Provider: Ana Lewis Consulting Providers: Mukund Caban Discharge Orders/Prescriptions Prescriptions: New lisinopril 40 mg Tablet 40 mg PO DAILY Qty: 30 0RF ferrous sulfate 325 mg (65 mg iron) tablet,delayed release (DR/EC) 325 mg PO BID Qty: 60 4RF Continued Trulance 3 mg tablet 3 mg PO DAILY Label Comments: take 1 tablet by mouth once daily Discontinued quetiapine 25 mg tablet 25 mg PO DAILY venlafaxine 37.5 mg capsule,extended release 24hr 37.5 mg PO 1700 divalproex 250 mg tablet,delayed release (DR/EC) 250 mg PO BID Label Comments: take 1 tablet by mouth twice a day venlafaxine 150 mg capsule,extended release 24hr 150 mg PO DAILY Label Comments: take 1 capsule by mouth daily with dinner hydroxyzine pamoate 25 mg capsule 25 - 50 mg PO QHS Label Comments: take 1 to 2 capsules by mouth at bedtime oxycodone-acetaminophen [oxycodone-acetaminophen] 1 TABLET tablet 2 tab PO Q8H PRN PRN (Reason: Pain) 7 Days Qty: 15 0RF cephalexin [cephalexin] 500 MG capsule 500 mg PO Q12 3 Days Qty: 6 0RF phenazopyridine [Pyridium] 200 MG tablet 200 mg PO TID PRN PRN (Reason: Bladder Spasms) 7 Days Qty: 30 0RF Referrals / Follow Up: Ana Lewis MD [Primary Care Provider] - Within 1 Month Disposition Disposition (needs filled in before D/C Order can be placed): Psychiatric [facility] or Unit Charges/Coding Visit Charges Inpatient E&M: 91057 Disch Hosp
[2022-12-01 13:18] VITALS: BP 139/95; PULSE 92; RESP 16; TEMP 36.4; O2SAT 95
[2022-12-01 13:23] VITALS: BP 139/95; PULSE 92; RESP 16; TEMP 36.4; O2SAT 95
--- NOTE | 2022-12-01 13:35 | PHA.DC.MR ---
Pharmacy Service has performed discharge medication reconciliation for this patient. The patient's discharge medication list was reviewed for discrepancies and discrepancies were resolved. Home Medications plecanatide 3 mg tablet (Trulance) 3 mg PO DAILY IBS 10/07/21 ferrous sulfate 325 mg (65 mg iron) tablet,delayed release 325 mg PO BID #60 tabs 12/01/22 lisinopril 40 mg tablet 40 mg PO DAILY #30 tabs 12/01/22
--- NOTE | 2022-12-01 15:55 | NURSING ---
This RN called report to JIAN Valerio [place] [facility]
== END 2022-12-01 13:12 ==
LOC: ED 11-30 01:00 → ICU 11-30 01:59 → PCU 11-30 16:28
PROVIDERS: Admitting Provider Hospitalist; Emergency Provider Emergency Medicine; PCP Family Medicine; Visit Provider Internal Medicine
DX: T43.212A Poisoning by selective serotonin and norepinephrine reuptake inhibitors, intentional self-harm, initial encounter (principal); F31.9 Bipolar disorder, unspecified; T43.292A Poisoning by other antidepressants, intentional self-harm, initial encounter; X83.8XXA Intentional self-harm by other specified means, initial encounter; U07.1 COVID-19; R40.0 Somnolence; D50.9 Iron deficiency anemia, unspecified; E78.00 Pure hypercholesterolemia, unspecified; E66.9 Obesity, unspecified; I10 Essential (primary) hypertension; F17.200 Nicotine dependence, unspecified, uncomplicated; F41.9 Anxiety disorder, unspecified; Z79.899 Other long term (current) drug therapy; Z68.35 Body mass index [BMI] 35.0-35.9, adult
CPT/HCPCS: J2916; 36415; 74018; 80048; 80053; 80307; 80329; 82077; 82728; 83540; 83550; 83735; 84100; 84439; 84443; 84703; 85025; 87635; 87811; 93005; 96361; 96365; 96366; 96375; 96376; 99221; 99285; J7030; J7050; J7120; A4216; G0378; G0480; U0005

== ENCOUNTER 2023-09-29 07:55 | Outpatient (CLI) | payer MEDICAID, SELFPAY ==
[2023-09-29] VITALS (17 sets, daily range): BP systolic 140–191; BP diastolic 83–118; PULSE 65–81; RESP 16–18; TEMP 36.7–36.8; O2SAT 90–99; BMI 33.8
--- NOTE | 2023-09-29 08:25 | OB.TRI.HP_ITS ---
HPI - General HPI Narrative PALMER HUGHES, is a 23 F at 30.6 weeks gestation who presents to triage with abdominal pain. Patient has received care through Dr. Gonzales in [facility]. C/O lower abdominal and back pain that started yesterday. Pain is constant. Having pain and pressure with urination. Positive movement. Denies and loss of fluid or vaginal bleeding. Stated she has been diagnosed with preeclampsia but has not taken any medications for a a couple of weeks because she doesn't like the way she feels on them . Denies any headache, vision changes, SOB, CP, or RUQ pain. [facility] Medical History (Updated 09/29/23 @ 09:57 by Brigette Christopher CNM) Anxiety Bipolar disorder Depression High cholesterol History of IBS Intentional drug overdose Right renal stone Smoker Suicide gesture Home Medications hydroxyzine pamoate 25 mg capsule mg 09/29/23 [History Last Taken 09/28/23 21:00 25 mg] sertraline 50 mg tablet (Zoloft) 50 mg PO DAILY 09/29/23 [History Last Taken 09/28/23 10:00 50 mg] Allergy/AdvReac Type Severity Reaction Status Date / Time metronidazole [From Flagyl] Allergy Intermediate Rash Verified 09/29/23 08:10 latex Allergy Other Verified 09/29/23 08:10 Family History Other Heart disease Hypertension Surgical History Hx of colonoscopy Social History Smoking Status: Light Smoker (<10/day) ROS Eyes Eyes: Denies blurry vision Cardiovascular Cardiovascular: Reports none; Denies chest pain at rest, chest pain with activity or dizziness Respiratory/Chest Respiratory/Chest: Denies cough or dyspnea Gastrointestinal Gastrointestinal: Reports other; Denies diarrhea or vomiting Musculoskeletal Musculoskeletal: Reports none Integumentary Integumentary: Reports none; Denies rash Neurologic Neurologic: Denies dizziness, headache(s) or other visual disturbances Psychiatric Psychiatric: Reports none Physical Exam Narrative Patient seen at bedside and evaluated. Const Orientation / Consciousness: awake, oriented to person, oriented to place and oriented to time Assessment & Plan (1) 30 weeks gestation of : (2) Preeclampsia: (3) Lower back pain: (4) Dysuria: (5) Bipolar disorder: (6) Anxiety: (7) with care elsewhere: (8) Abdominal pain affecting : PLAN: Plan BP monitoring Hypertension protocol initiated if needed PIH labs/ P/C ratio Start IV and give 500 cc bolus of LR UA Dr. Patel notified of above assessment and plan and will assume management of patient
[2023-09-29 09:22] LABS: Hematocrit 32.7 % (37-47); Mean Corp Hgb Conc 33.6 g/dL (32-36); Mean Corpuscular Hgb 26.8 pg (27.0-32.0); Mean Corpuscular Volume 79.6 fL (81-99); Mean Platelet Vol. 11.9 fl (6.2-12.0); Platelet Count 235 K/mm3 (150-450); RBC Distribution Width CV 12.8 % (11.6-14.6); RBC Distribution Width SD 36.7 fl (35.1-43.9); Red Blood Count 4.11 M/mm3 (4.2-5.4); White Blood Count 8.5 K/mm3 (4.4-11.0)
[2023-09-29 09:25] LABS: Color, Urine Yellow (Yellow); Glucose, Dipstick Normal (Normal); Ketone-Dipstick 5 mg/dl (Negative); Leukocyte Esterase-Dipstick 500 /ul (Negative); Nitrite-Dipstick Negative (Negative); Occult Blood-Urine 10 /ul (Negative); Protein-Dipstick 100 mg/dl (Negative); Specific Gravity, Urine 1.015 (1.002-1.030); Urine Bilirubin Dipstick Negative (Negative); Urine Clarity Sl. Cloudy (Clear); Urine Urobilinogen Normal (Normal); Urine pH 6.5 (5.0 - 8.0)
[2023-09-29 09:36] LABS: AST(SGOT) 11 U/L (15-37); Alanine Aminotransfer ALT/SGPT 18 U/L (13-56); EST Glomerular Filtration Rate 132 mL/min (>60); Est Glom Filt Rate - Afr Amer 160 mL/min (>60); Estimated Creatinine Clearance 157.88 ml/min; Uric Acid 5.7 mg/dL (2.6-6.0)
[2023-09-29 09:49] LABS: Protein, Urine (Random) 239.9 mg/dL (<11.9); Protein:Creat Ratio 1518 mg/g CRE (0-200)
[2023-09-29] MEDS: Magnesium Sulfate 4gm/100mL 4 GM/100 ML IV.SOLN. IV (09:49)
[2023-09-29] MEDS: Magnesium Sulfate 4gm/100mL 2 GM/50 ML IV.SOLN. IV (09:49)
--- NOTE | 2023-09-29 09:51 | PN_ITS ---
Progress Note Pt was evaluated by REJI Christopher in Triage this morning - Pt receiving care elsewhere. Reports was Dx wtih Preeclampsia about 2 weeks ago and started on BP medication but has not been taking regularly. BPs on admission severe range. Pt asymptomatic. @ 30.6 weeks- care elsewhere (no records available at this time), Severe range BPs 1) Start Labetalol HTN protocol 2) Magnesium sulfate 6gm loading dose, 2g/hr 3) Celestone 4) IVF total 100/hr 5) MFM at [facility] - transfer to tertiary care facility 6) Transport to be contacted
[2023-09-29] MEDS: Betamethasone/Betamethasone 30 MG/5 ML Vial 12 MG IM (10:00)
[2023-09-29] MEDS: Labetalol (Prefilled) 20 MG/4 ML IV (10:03)
[2023-09-29] MEDS: Labetalol (Prefilled) 20 MG/4 ML 40 MG IV (10:16)
[2023-09-29] MEDS: Magnesium Sulfate 20 GM/500 ML BAG IV (10:23)
[2023-09-29] MEDS: Labetalol 200 MG Tablet 300 MG PO (10:56)
--- NOTE | 2023-09-29 11:18 | PN_ITS ---
Progress Note Patient seen at bedside, anxious about being transported to [facility] and has many questions. Patient does not think that there is anything wrong with her and that her blood pressure is fine. Patient has concerns about staying at another hospital and being stuck there. Patient denies any headaches or visual changes. She states she has some mild lower back pain. She reports that she was started on blood pressure medication but did not like the way she felt on it so has not been taking it. She was told that she might have preeclampsia but was never given a definitive answer. Physical Exam Narrative General: Female in no apparent distress Abdomen: No right upper quadrant tenderness, gravid and nontender EXT: No swelling, DTRs +2 NST: 130s mod magnus, + accels (10x10) no decels, No contractions. Cat 1, reactive. Assessment & Plan Assessment/Plan (1) with care elsewhere: (2) Bipolar disorder: (3) Anxiety: (4) Lower back pain: (5) Preeclampsia: (6) 30 weeks gestation of : PLAN: Plan @ 30.6 weeks- severe PRE Eclampsia 1) discussed with patient importance of transport to a tertiary care center due to 30 weeks gestation and severe pre-E. All questions were answered patient agrees to be transported to [facility]. Transport team is here. 2) continue magnesium 3) s.p Labetalol 60mg IVP total now on 300mg PO BID labetalol maintenance 4) outside records records- show procardia 30xl prescribed - pt did not like SE so has not taken- labs not able to be found per nursing 5) Growth us 29% done previously Breech? 6) Continue Magnesium 7) celestone x1 IM given
--- NOTE | 2023-09-29 12:05 | CASEMGMT ---
Labor and Delivery Structural Engineer Brief Assessment Patient address: [address] [place] [id number] Patient Phone number: unknown Date of referral: 09/29/23 Time of referral: 939 Reason for referral: Patient with learning disability, pre-eclampsia, requiring transfer to [facility] for further medical evaluation and assistance due to gestational age of baby History: Patient is 23 year old female who is 30 weeks who presented to emergency department due to back pain. It was discovered that patient is pre-eclamptic and needs to be transferred to [facility] due to the critical medical condition she is in. Sw met with patient to provide support as it was reported that patient is anxious and without supportive family/ friends or FOB. Sw introduced self to patient and explained sw role. Joel states that she currently resides with her father. Patient states that she does not work, but her father works furniture sander for [employer]. Patient reports that her sister is also a support to her, although not able to be present at this time due to having a 2 year old daughter. Patient states that current is first baby for her. Baby girl, whom she plans to name Pamela Dutton. Patient states the middle name is her late mother's middle name. Patient reports that father of baby (LUCIAN Crabtree) is not involved. Patient states that she and Bro were in a relationship for about 6 months when she discovered that she was . Patient states that Bro told her he has no intentions of parenting. MOB states that he has only helped her to obtain several articles of clothing for baby. Patient states that she has not obtained all necessary baby items- reporting to only having some clothing. Patient states that her sister is going to give her a pack-n-play. Patient has mental health history significant for being diagnosed with: anxiety, depression and bipolar. Patient reports that almost a year ago her mother , and she is the person who found her in her bed. Patient states that her mom from critical hypertension. Patient states that after her mother she attempted suicide by overdose, and ended up in an inpatient psychiatric unit. Patient disclosed that this is why she is resistant to being transferred to [facility], she does not want to feel trapped in the hospital without a way to get home. Sw and medical team explained medical necessity for MOB to be transferred, and explained that there are resources available to her that will help with transportation needs when warranted. After several conversations with patient, she then signed consent for transfer to [facility]. It was explained to patient that sometimes the only way to resolved pre-eclampsia is for the baby to be born. Dr. Patel explained to patient that more than likely her baby will be delivered within the next couple of days, and will need to be admitted to NICU. Patient expressed understanding and ultimately signed consent forms. Assessment: Met with patient during admission to provide support and education. Patient with self disclosed learning disability, states that she learns best by being told things repetitively. Patient initially hesitant, but then understanding of need for her to be transferred to hospital with access to NICU who can better care for baby when born at 30/31 weeks gestation. Patient with limited supports in place and does not have all necessary baby supplies. Plan: Sw available to provide ongoing support to patient prior to her scheduled transfer. Sw provided information about patient and social concerns to [facility] and [facility] behavioral health social work for continuity of care. No further needs requested or indicated. Vito Lam, [employer]LECT[employer] MASK MAKER, INSPECTOR OF WEIGHTS AND MEASURES
== END 2023-09-29 11:48 | disposition short-term general hospital (02) ==
LOC: WPOUT 07:57 → WP 07:58
PROVIDERS: PCP Family Medicine; Referring Provider Advanced Practice Midwife; Visit Provider Advanced Practice Midwife
DX: O14.93 Unspecified pre-eclampsia, third trimester (principal); F31.9 Bipolar disorder, unspecified; O99.343 Other mental disorders complicating pregnancy, third trimester; O26.893 Other specified pregnancy related conditions, third trimester; F41.9 Anxiety disorder, unspecified; O26.93 Pregnancy related conditions, unspecified, third trimester; Z3A.30 30 weeks gestation of pregnancy; O99.891 Other specified diseases and conditions complicating pregnancy; M54.50 Low back pain, unspecified
CPT/HCPCS: 96374; 36415; 59025; 59050; 81002; 82565; 82570; 84156; 84450; 84460; 84550; 85027; 99221; G0378; J0702